=== PATIENT | male | born 1985 | race African-American/Black ===

== ENCOUNTER 2019-10-06 23:17 | Emergency (ER) | payer OTHER ==
[~2019-10-06] VITALS: Ht 182.9 cm; Wt 114.0 kg
[2019-10-07] MEDS ORDERED: IBUPROFEN 600MG TABLET PO ONE
[2019-10-07 01:30] VITALS: BP 139/84
== END 2019-10-07 01:44 | disposition home or self-care (01) ==
LOC: ER 23:50
DX: G44.209 Tension-type headache, unspecified, not intractable (principal); R03.0 Elevated blood-pressure reading, without diagnosis of hypertension
CPT/HCPCS: 99282

== ENCOUNTER 2021-03-31 08:42 | Emergency (ER) | payer MEDICAID ==
[~2021-03-31] VITALS: Ht 182.9 cm; Wt 114.0 kg
[2021-03-31] MEDS ORDERED: ACETAMINOPHEN 325MG TABLET PO STA (08:57)
[2021-03-31] MEDS ORDERED: LIDOCAINE HCL/EPINEPHRINE 1%-EPI 1:100,000 20 ML VIAL INFIL ONE (09:15)
[2021-03-31] MEDS ORDERED: CEPH500T PO (09:42)
[2021-03-31] MEDS ORDERED: SULF1TAB48 PO (09:43)
[2021-03-31] MEDS ORDERED: TOPUD PO (09:44)
[2021-03-31 10:16] VITALS: BP 127/79
== END 2021-03-31 10:17 | disposition home or self-care (01) ==
LOC: ER 08:42
DX: L02.01 Cutaneous abscess of face (principal); Z91.040 Latex allergy status; Z98.890 Other specified postprocedural states
CPT/HCPCS: 10060; 99284; J3490; Z7610

== ENCOUNTER 2021-04-03 21:37 | Emergency (ER) | payer MEDICAID ==
[~2021-04-03] VITALS: Ht 182.9 cm; Wt 120.1 kg
[~2021-04-03 21:37] MED LIST: CEPH500T PO; SULF1TAB48 PO; TOPUD PO
[2021-04-03 22:02] VITALS: BP 145/94
[2021-04-03] MEDS ORDERED: SALI14GE TP (22:31)
== END 2021-04-03 22:54 | disposition home or self-care (01) ==
LOC: ER 21:37
DX: L02.01 Cutaneous abscess of face (principal); L70.0 Acne vulgaris; Z91.040 Latex allergy status
CPT/HCPCS: 99282